=== PATIENT | female | born 1955 ===

== ENCOUNTER 2023-12-05 07:38 | Outpatient (CLI) | payer OTHER | END 2023-12-05 07:42 | disposition home or self-care (01) | LOC: SONOGRAMA 07:38 | PROVIDERS: ATTEND Pathology Anatomic Pathology | DX: E04.2 Nontoxic multinodular goiter (principal) ==

== ENCOUNTER 2024-09-13 16:01 | Outpatient (CLI) | payer OTHER | END 2024-09-13 16:03 | disposition home or self-care (01) | LOC: SONOGRAMA 16:01 | PROVIDERS: ATTEND Pathology Anatomic Pathology & Clinical Pathology | DX: D44.0 Neoplasm of uncertain behavior of thyroid gland (principal); E04.1 Nontoxic single thyroid nodule ==

== ENCOUNTER 2025-04-02 12:37 | Outpatient (CLI) | payer OTHER | END 2025-04-02 12:45 | disposition home or self-care (01) | LOC: SONOGRAMA 12:37 | PROVIDERS: ATTEND Internal Medicine Endocrinology, Diabetes & Metabolism | DX: E04.2 Nontoxic multinodular goiter (principal) ==